=== PATIENT | male | born 1950 | race Asian ===

== ENCOUNTER 2017-01-21 15:16 | Emergency (ER) | payer OTHER ==
[2017-01-21 15:22] VITALS: BP 152/79; PULSE 81; TEMP 98.3; BMI 27.5
[2017-01-21] MEDS ORDERED: DIPHTH,PERTUSS(ACELL),TET 0.5 ML DISP.SYRIN IM ONE (15:55)
[2017-01-21] MEDS ORDERED: OXYCODONE/APAP 5/325MG COMBO TABLET PO ONE (15:58)
[2017-01-21] MEDS ORDERED: OXYCODONE/APAP 5/325MG COMBO TABLET ONE (15:59)
--- NOTE | 2017-01-21 16:04 | PDOC ---
History of Present Illness - General Chief Complaint: Laceration Stated Complaint: LACERATED FINGERS Time Seen by Provider: 01/21/17 15:50 History Source: Patient Exam Limitations: No Limitations - History of Present Illness Initial Comments: 01/21/17 15:59 CHIEF COMPLAINT: Injury to left and right index fingers. HISTORY OF PRESENT ILLNESS: Patient is a 67-year-old male, history of cardiac bypass, hypertension, high cholesterol, [id number] diabetes. Patient reports being at work carrying a vending machine it slipped and he injured and crushed his left second finger and right second finger there are lacerations to pad of bilateral fingers. Pain is a 10 out of 10. No visible bone or tendon noted. Denies any other injury. Past History - Past Medical History Allergies/Adverse Reactions: Allergies Allergy/AdvReac Type Severity Reaction Status Date / Time No Known Allergies Allergy Verified 01/21/17 15:19 Home Medications: Ambulatory Orders Amlodipine Besylate [Norvasc -] 5 mg PO DAILY 04/01/14 Atorvastatin Ca [Lipitor] 40 mg PO HS 04/01/14 Clopidogrel Bisulfate [Plavix -] 75 mg PO DAILY 04/01/14 Glyburide 5 mg PO BID 04/01/14 Losartan Potassium [Cozaar] 50 mg PO DAILY 04/01/14 Metformin HCl [Metformin HCl ER] 1,000 mg PO BID 04/01/14 Aspirin [ASA -] 81 mg PO DAILY 11/25/14 Docusate Sodium [Colace -] 100 mg PO BID 11/25/14 Fenofibric Acid [Fibricor] 105 mg PO DAILY 11/25/14 Furosemide [Lasix -] 20 mg PO DAILY 11/25/14 Metoprolol Succinate [Toprol XL -] 25 mg PO DAILY 11/25/14 Cephalexin [Keflex] 500 mg PO TID #30 capsule 01/21/17 Oxycodone HCl/Acetaminophen [Percocet 5-325 mg Tablet] 1 tab PO Q6H #12 tablet MDD 4 01/21/17 Anemia: No Asthma: No Cancer: No Cardiac Disorders: Yes (cabg 06/24) CVA: No COPD: No Dementia: No Diabetes: Yes GI Disorders: No Disorders: No HTN: Yes Hypercholesterolemia: Yes Liver Disease: No (jaundice when younger) Suicide Attempt (Hx): No Seizures: No Thyroid Disease: No - Surgical History Cardiac Surgery: Yes (BYPASS: 06/2013) - Psycho/Social/Smoking Cessation Hx Anxiety: No Suicidal Ideation: No Smoking History: Never smoked Have you smoked in the past 12 months: Yes Number of Cigarettes Smoked Daily: 20 If you are a former smoker, when did you quit?: 06/2013 Information on smoking cessation initiated: No 'Breaking Loose' booklet given: 06/14/13 Hx Alcohol Use: No Drug/Substance Use Hx: No Substance Use Type: None Review of Systems - Review of Systems Constitutional: No: Symptoms Reported HEENTM: No: Symptoms Reported Respiratory: No: Symptoms reported Cardiac (ROS): No: Symptoms Reported ABD/GI: No: Symptoms Reported : No: Symptoms Reported Musculoskeletal: Yes: Joint Pain, Joint Swelling Integumentary: Yes: Erythema, Other (lacerations to bilateral second fingers.) Neurological: No: Symptoms reported, Paresthesia, Tingling, Tremors All Other Systems: Reviewed and Negative *Physical Exam - Vital Signs Last Vital Signs Temp Pulse Resp BP Pulse Ox 98.3 F 81 18 152/79 100 01/21/17 15:19 01/21/17 15:19 01/21/17 15:19 01/21/17 15:19 01/21/17 15:19 - Physical Exam General Appearance: Yes: Appropriately Dressed, Apparent Distress (pain 10 out of 10) Neck: negative: Tender, Tender lateral, Tender midline Respiratory/Chest: positive: Lungs Clear, Normal Breath Sounds Cardiovascular: positive: Regular Rhythm, Regular Rate Musculoskeletal: positive: Decreased Range of Motion, Other (100 percent subungual hematoma to the right second finger. ) Extremity: positive: Swelling, Other (lacerations to second finger on left hand and right hand.) Integumentary: positive: Erythema, Swelling, Other (Laceration to shanna right second finger, 1 cm to the left lateral border, partial avulsion and damage to the base of the nail, cuticle. Left second finger with 2 lacerations to the distal finger, horizontally one on top of the other. ). negative: Ecchymosis, Bruising Neurologic: positive: Alert, Normal Mood/Affect Procedures - Laceration/Wound Repair Finger Wound Length: to 2.5 cm Wound Explored: clean Wound's Depth, Shape: linear Irrigated w/ Saline: Yes Betadine Prep: Yes Anesthesia: 1% Lidocaine (digital block performed with good results to base of left second finger) Amount of Anesthetic (ccs): 4 Wound Debrided: moderate Wound Repaired With: Sutures Suture Size/Type: 5:0 Number of Sutures: 9 Progress: 01/21/17 18:08 Left second finger. Right Finger Wound Length: to 2.5 cm Wound Explored: clean Wound's Depth, Shape: linear Irrigated w/ Saline: Yes Betadine Prep: Yes Anesthesia: 1% Lidocaine Amount of Anesthetic (ccs): 3 Wound Debrided: moderate Wound Repaired With: Sutures Number of Sutures: 3 Layer Closure: No Sterile Dressing Applied: Yes - Nail Trephination Nail Trephination Location: Right second finger, 100 percent subungual hematoma. Method of Drainage: nail cauterized Sterile Dressing Applied: Yes Finger Splint: No Progress: 01/21/17 18:10 Nail trephination performed with good result, decrease pressure and finger as noted by patient. ED Treatment Course - RADIOLOGY Radiology Studies Ordered: Category Date Time Status FINGER(S) LEFT [RAD] Stat Radiology 01/21/17 15:54 Ordered FINGER(S) RIGHT [RAD] Stat Radiology 01/21/17 15:54 Ordered Medical Decision Making - Medical Decision Making 01/21/17 16:02 A/P: Patient with lacerations to bilateral index fingers, sent for x-ray to rule out crush injury. Tetanus given, last unknown. Patient sent to x-ray of bilateral fingers, right finger wet read with distal phalanx fracture. Ancef 2 g given. See procedure notes Patient to be discharged on Keflex. Follow-up in 10 days for suture removal Monitor areas daily for any increased redness swelling or signs of infection Change dressing twice a day I discussed the physical exam findings, ancillary test results and final diagnoses with the patient. I answered all of the patient's questions. The patient was satisfied with the care received and felt comfortable with the discharge plan and treatment plan. *DC/Admit/Observation/Transfer Diagnosis at time of Disposition: Subungual hematoma Crushing injury of finger of left hand Qualifiers: Encounter type: initial encounter Qualified Code(s): S67.22XA - Crushing injury of left hand, initial encounter Crushing injury of finger of right hand Qualifiers: Encounter type: initial encounter Qualified Code(s): S67.21XA - Crushing injury of right hand, initial encounter Finger laceration Qualifiers: Encounter type: initial encounter Finger: index finger Damage to nail status: with damage Foreign body presence: without foreign body Laterality: left Qualified Code(s): S61.311A - Laceration without foreign body of left index finger with damage to nail, initial encounter - Discharge Dispostion Disposition: HOME Condition at time of disposition: Good Admit: No - Prescriptions Prescriptions: Cephalexin [Keflex] 500 mg PO TID #30 capsule Oxycodone HCl/Acetaminophen [Percocet 5-325 mg Tablet] 1 tab PO Q6H #12 tablet MDD 4 - Patient Instructions Printed Discharge Instructions: DI for Laceration Repair Additional Instructions: Keep area clean dry and intact Keep dressing on until tomorrow If any increased bleeding through the dressing return immediately to emergency department Keep area clean dry and intact bacitracin x3 days, then let it dry out Please return in 10 days for suture removal. Please return immediately to emergency department with any increased redness, swelling, signs of infection
[2017-01-21] MEDS ORDERED: ceFAZolin 2 GRAM PREMIX BAG IVPB ONE (16:33)
[2017-01-21] MEDS ORDERED: CEFAZOLIN (PRE-DOCKED) 50 ML IVPB ONE (16:56)
== END 2017-01-21 18:35 | disposition home or self-care (01) ==
LOC: JERFT 15:16
PROC: 0H9QXZZ Drainage of Finger Nail, External Approach (ICD-10-PCS; principal; 2017-01-21)
PROC: 0HQGXZZ Repair Left Hand Skin, External Approach (ICD-10-PCS; 2017-01-21)
PROC: 3E0234Z Introduction of Serum, Toxoid and Vaccine into Muscle, Percutaneous Approach (ICD-10-PCS; 2017-01-21)
DX: S61.311A Laceration without foreign body of left index finger with damage to nail, initial encounter (principal); S67.22XA Crushing injury of left hand, initial encounter; S67.21XA Crushing injury of right hand, initial encounter; S60.10XA Contusion of unspecified finger with damage to nail, initial encounter; W23.1XXA Caught, crushed, jammed, or pinched between stationary objects, initial encounter; Y93.89 Activity, other specified; Y92.9 Unspecified place or not applicable; Y99.0 Civilian activity done for income or pay
CPT/HCPCS: 73140-TC-LT; 73140-TC-RT; 90715; 99282-25

== ENCOUNTER 2017-01-31 11:53 | Emergency (ER) | payer OTHER ==
[2017-01-31 12:10] VITALS: BP 117/59; PULSE 79; TEMP 97.7; BMI 22.1
--- NOTE | 2017-01-31 13:53 | PDOC ---
Suture Removal/Wound Check HPI - History of Present Illness Chief Complaint: Suture/Staple Removal(Here) Stated Complaint: SUTURE REMOVAL Time Seen by Provider: 01/31/17 12:45 History Source: Yes: Patient Exam Limitations: Yes: No Limitations Treated at: [facility] Date of Last ED visit: 01/21/17 - Previous ED Treatment Type of procedure performed on last visit: Yes: Laceration Repair Tetanus Immunization: Yes: Up to Date Past History - Past Medical History Allergies/Adverse Reactions: Allergies No Known Allergies Allergy (Verified 01/31/17 12:06) Home Medications: Ambulatory Orders Amlodipine Besylate [Norvasc -] 5 mg PO DAILY 04/01/14 Atorvastatin Ca [Lipitor] 40 mg PO HS 04/01/14 Clopidogrel Bisulfate [Plavix -] 75 mg PO DAILY 04/01/14 Glyburide 5 mg PO BID 04/01/14 Losartan Potassium [Cozaar] 50 mg PO DAILY 04/01/14 Metformin HCl [Metformin HCl ER] 1,000 mg PO BID 04/01/14 Aspirin [ASA -] 81 mg PO DAILY 11/25/14 Docusate Sodium [Colace -] 100 mg PO BID 11/25/14 Fenofibric Acid [Fibricor] 105 mg PO DAILY 11/25/14 Furosemide [Lasix -] 20 mg PO DAILY 11/25/14 Metoprolol Succinate [Toprol XL -] 25 mg PO DAILY 11/25/14 - Immunization History Tetanus Status: Unknown - Social History Smoking Status: Former smoker Number of Ciarettes Per Day: 20 Suture Removal/Wound Check PE - Physical Exam Laceration/Wound Check Symptoms: reports: None Current Severity Level: None Maximum Severity Level: None Pain Localization: None *Review of Systems - Review of Systems Constitutional: No: Symptoms Reported Musculoskeletal: Yes: Joint Pain Integumentary: Yes: Other (SUTURES INTACT. nO SECONDARY SIGNS OF INFECTION. ) . No: Bruising, Erythema Neurological: No: Symptoms reported, Paresthesia, Tingling, Tremors Hematologic/Lymphatic: No: Symptoms Reported All Other Systems: Reviewed and Negative Medical Decision Making - Medical Decision Making 01/31/17 13:50 Sutures removed from left second finger and right second finger, right second finger with 3 sutures removed without difficulty. There is no erythema edema or secondary signs of infection. Left second finger 9 sutures were removed without difficulty. Healing well, finger splint placed back on. To follow-up with Dr. Siddiqi as needed. *DC/Admit/Observation/Transfer Diagnosis at time of Disposition: Visit for suture removal - Discharge Dispostion Disposition: HOME Condition at time of disposition: Good Admit: No - Referrals Referrals: oYrdy Siddiqi MD [Staff Physician] - - Patient Instructions Printed Discharge Instructions: DI for Suture Removal Additional Instructions: Please keep area clean and dry. Keep splint on until follow up with Dr. Siddiqi. - Post Discharge Activity Work/School Note: Back to Work
== END 2017-01-31 14:17 | disposition home or self-care (01) ==
LOC: JERFT 11:53
DX: Z48.02 Encounter for removal of sutures (principal); E78.00 Pure hypercholesterolemia, unspecified; E11.9 Type 2 diabetes mellitus without complications; Z79.84 Long term (current) use of oral hypoglycemic drugs
CPT/HCPCS: 99281-25